=== PATIENT | female | born 1990 | race Caucasian/White ===

== ENCOUNTER 2025-01-10 12:23 | Emergency (ER) | payer OTHER, SELFPAY ==
[2025-01-10 12:35] VITALS: BP 141/105
[2025-01-10 13:11] LABS: % Basophils 0.2 % (0-2); % Eosinophils 0.2 % (0-6); % Immature Granulocytes 0.6 % (0-0.5); % Lymphocytes 15.8 % (20.5-51.1); % Monocytes 3.5 % (1.7-9.3); % Neutrophils 79.7 % (42.2-75.2); Absolute Immature Granulocytes 0.1 10^3/uL (0-0.05); Absolute Lymphocytes 1.9 10^3/uL (1.2-3.4); Absolute Monocytes 0.4 10^3/uL (0.1-0.6); Absolute Neutrophils 9.6 10^3/uL (1.4-6.5); Hematocrit 41.2 % (37.0-47.0); Hemoglobin 13.6 g/dL (12.0-16.0); Mean Corpuscular Hgb 29.5 pg (27.0-31.0); Mean Corpuscular Volume 89.4 fL (81.0-99.0); Mean Platelet Volume 8.4 fL (7.4-10.4); Nucleated Red Blood Cells % 0 %; Platelet Count 340 10^3/uL (130-400); Red Blood Cell Count 4.61 10^6/uL (4.20-5.40); Red Cell Dist. Width 12.7 % (11.5-14.5); White Blood Cell Count 12.1 10^3/uL (4.8-10.8)
[2025-01-10 13:22] LABS: HCG, Serum Qualitative Screen Negative
[2025-01-10 13:26] LABS: ALT (SGPT) 12 U/L (0-35); AST (SGOT) 22 U/L (14-36); Albumin 4.8 g/dl (3.5-5.0); Alkaline Phosphatase 103 U/L (38-126); Blood Urea Nitrogen 8 mg/dl (7-17); Calcium 9.4 mg/dl (8.4-10.2); Carbon Dioxide 28 mmol/L (22-30); Chloride 105 mmol/L (98-107); Glucose 114 mg/dl (70-99); Potassium 4.6 mmol/L (3.5-5.1); Sodium 142 mmol/L (135-145); Total Bilirubin 0.7 mg/dl (0.2-1.3); Total Protein 7.9 g/dl (6.3-8.2); eGFR > 60.00
[2025-01-10] MEDS: BENADRYL 12.5 MG IV (15:53)
[2025-01-10] MEDS: REGLAN 10 MG IV (15:53)
[2025-01-10] MEDS: TORADOL 15 MG IV (15:54)
[2025-01-10] MEDS: NSS 1000 IV (15:55)
--- NOTE | 2025-01-10 16:09 | ED.GENMED ---
History of Present Illness
General
Chief Complaint: Headache
Source: patient
Exam Limitations: none
Time Seen by Provider: 01/10/25 15:33
Nursing documentation reviewed up to this point in time: agreed with
History of Present Illness
History of Present Illness:
Patient presents to ED secondary to persistent headache with multiple vomiting episodes, since last night. Patient recently experienced flulike symptoms, which resolved 1 week ago. However, recently one of her children tested positive for strep
throat and she also started to experience sore throat on Sunday. As such, patient called her primary care physician who prescribed amoxicillin, which she has been taking with improvement in her sore throat symptoms. Denies coughing. Denies
nausea, vomiting, or diarrhea. Denies loss of appetite Denies dizziness. Denies blurred vision. Denies loss of sensation or weakness. Denies recent travel. In addition, patient reports 'popping sensation' on the right side of her head 1 week
ago, which resolved spontaneously.
Review of Systems
Review of Systems
Allergies reviewed?: Yes
All Other Systems: ROS reviewed and negative except as documented in HPI and ROS
Constitutional: Reports no symptoms; Denies fever or chills
EENT: Reports sore throat
Respiratory: Reports no symptoms; Denies trouble breathing
Cardiac: Reports no symptoms
ABD/GI: Reports nausea and vomiting; Denies diarrhea
Musculoskeletal: Reports no symptoms
Skin: Reports no symptoms
Neurological: Reports headache
Phy Exam
Physical Exam
Physical Exam:
Physical Exam
General: mild painful distress, not acutely ill. afebrile
Head: nc/at. eomi
Neck: supple. normal range of motion.
Heart: s1/s2 regular rate and rhythm, no murmur.
Lungs: no acute respiratory distress. clear bilaterally
Abdomen: normal bowel sounds. not tender.
Neuro: alert and oriented x 3. no focal neurological deficits
Skin: no rash
Psychiatric: well kept. interactive and cooperative
Extremities: no edema. no calf tenderness.
Course
Orders/Labs/Results
Orders:
Orders
01/10/25 12:41
Test Result ONCE
01/10/25 13:03
Complete Blood Count/With Diff Urgent
Comprehensive Metabolic Panel Urgent
HCG, Serum Qualitative Screen Urgent
01/10/25 15:41
CT Head W/o Iv Contrast Urgent
Comment:
Reason For Exam: headache
0.9% Sodium Chloride 1000 ml [Nss] 1,000 ml IV BOLUS
Diphenhydramine [Benadryl] 12.5 mg IV NOW STA
Ketorolac [Toradol] 15 mg IV NOW STA
Metoclopramide [Reglan] 10 mg IV NOW STA
Abnormal Lab Results
01/10/25
13:03
WBC 12.1 H 10^3/uL
(4.8-10.8)
Abs Immat Gran (auto) 0.1 H 10^3/uL
(0-0.05)
Absolute Neuts (auto) 9.6 H 10^3/uL
(1.4-6.5)
Immature Gran % 0.6 H %
(0-0.5)
Neutrophils % 79.7 H %
(42.2-75.2)
Lymphocytes % 15.8 L %
(20.5-51.1)
Glucose 114 H mg/dl
(70-99)
01/10/25 13:03
01/10/25 13:03
Vital Signs
Initial and Last Documented VS:
Initial Vital Signs
Temp Pulse Resp BP Pulse Ox
98.5 F 86 18 141/105 99
01/10/25 12:35 01/10/25 12:35 01/10/25 12:35 01/10/25 12:35 01/10/25 12:35
Last Documented Vital Signs
Temp Pulse Resp BP Pulse Ox
98.5 F 86 18 141/105 99
01/10/25 12:35 01/10/25 12:35 01/10/25 12:35 01/10/25 12:35 01/10/25 12:35
MDM/Problems Addressed
MDM/Problems Addressed:
CT head: No acute findings. Patient reports significant improvement symptoms after treatment. Otherwise, patient remains afebrile, hemodynamically stable, and neurologically intact during extended course of observation. Patient's presenting
symptoms likely multifactorial, including recent infection as well as current ongoing infection with sore throat. Patient will be advised to continue amoxicillin, which has been prescribed by her primary care physician, along with hydration at
home. Patient expresses understanding at time of discharge, to the care of her spouse.
*Critical Care Note
Total Time (30-74mins, 75-104mins- exclusive of procedures): Not Applicable
ED Attending Note
-
Portions of this chart may have been created with voice recognition software.� Occasional wrong word or��sound alike� substitutions may have occurred due to the inherent limitations of voice recognition software.
Discharge Plan
Departure
Patient Disposition: Home (Routine Discharge)
Date of Disposition: 01/10/25
Time of Disposition: 19:03
Patient with high blood pressure during this ER visit?: Yes
Condition: Good
Discharge Problem:
Headache
Instructions: Headache, Adult (DC)
Prescriptions:
No Action
Vitamin
1 tab PO DAILY
acetaminophen 325 mg Tablet
650 mg PO Q4HPRN PRN (Reason: mild pain) Qty: 0 0RF
ibuprofen 600 mg Tablet
600 mg PO Q6HPRN PRN (Reason: moderate pain/cramps) Qty: 0 0RF
Referrals:
Carleen Sheppard CRNP [Family Provider] -
Activity Restrictions/Additional Instructions:
As discussed, please follow-up with your primary care physician with any further concerns. In the meantime, please continue take Tylenol/Motrin for symptom relief, along with hydration.
Interventions
Interventions:
*Risk Screen - Suicide Last Done: 01/10/25 12:35
*General Assessment Last Done: 01/10/25 12:35
*Neglect/Abuse Screening Last Done: 01/10/25 12:35
*ED COVID-19 Vaccine History Last Done: 01/10/25 17:17
*Nursing Disposition Last Done: 01/10/25 19:12
ED- Neurological Assessment Last Done: 01/10/25 16:00
Discharge Date and Time
Discharge Date/Time: 01/10/25 19:12
Print Language: ROMANIAN
== END 2025-01-10 19:12 | disposition home or self-care (01) ==
LOC: EMR 12:23
PROVIDERS: Emergency Medicine; EMERGENCY PHYSICIAN Emergency Medicine; FAMILY PHYSICIAN Nurse Practitioner Adult Health
DX: R51.9 Headache, unspecified (principal); R03.0 Elevated blood-pressure reading, without diagnosis of hypertension
CPT/HCPCS: 99284; 96374; 96375 ×2; 96361; 70450; 80053; 84703; 85025